=== PATIENT | female | born 1995 | race Caucasian/White ===

== ENCOUNTER → 2019-05-10 13:57 | Outpatient (CLI) | payer MEDICAID ==
[~2019-05-10 13:57] MED LIST: TYLENOL W/CODEI1 TAB PO
[2019-05-10 15:26] LABS: BASOPHILS 0.1 % (0-2); EOSINOPHILS 1.3 % (0-7); HEMATOCRIT 28.5 % (36.0-48.0); IMMATURE GRANULOCYTES 1.3 % (0-5); LYMPHOCYTES 16.5 % (15-50); MCH 26.9 pg (26.0-34.0); MCHC 31.6 g/dL (31.0-37.0); MCV 85.3 fL (80.0-100.0); MEAN PLATELET VOLUME 11.3 fL (7.4-10.4); MONOCYTES 10.1 % (2-11); NEUTROPHILS 70.7 % (40-80); RBC 3.34 10x6/uL (4.00-5.40); RDW 13.5 % (11.5-14.5); WBC 8.4 10x3/uL (4.8-10.8)
[2019-05-10 15:32] LABS: PLATELET COUNT 193 10x3/uL (130-400)
[2019-05-10 15:46] LABS: ALBUMIN 2.6 g/dL (3.4-5.0); ALKALINE PHOSPHATASE 171 U/L (46-116); ALT (SGPT) 11 U/L (10-68); BILIRUBIN - DIRECT 0.06 mg/dL (0.00-0.30); BILIRUBIN - INDIRECT 0.13 mg/dL (0.00-1.00); BILIRUBIN - TOTAL 0.19 mg/dL (0.2-1.3); CALC OSMOLALITY 275 mosm/kg (275-300); CALCIUM 8.4 mg/dL (8.5-10.1); CHLORIDE - SERUM 105 mmol/L (98-107); CREATININE - SERUM 0.6 mg/dL (0.6-1.3); GLUCOSE 76 mg/dL (74-106); POTASSIUM - SERUM 4.1 mmol/L (3.5-5.1); PROTEIN - SERUM 6.5 g/dL (6.4-8.2); SODIUM 139 mmol/L (136-145); UREA NITROGEN 11 mg/dL (7-18); eGFR NON AFRICAN AMERICAN > 90 mL/min (90-120)
[2019-05-18 20:39] VITALS: BMI 28.2
== END | disposition home or self-care (01) ==
LOC: D.LDO 13:57
PROVIDERS: ATTEND Obstetrics & Gynecology
DX: O26.899 Other specified pregnancy related conditions, unspecified trimester (principal); R03.0 Elevated blood-pressure reading, without diagnosis of hypertension; Z3A.00 Weeks of gestation of pregnancy not specified

== ENCOUNTER → 2019-05-18 10:37 | Outpatient (CLI) | payer MEDICAID ==
[2019-05-18 20:39] VITALS: BMI 28.2
== END | disposition home or self-care (01) ==
LOC: D.LDO 10:37
PROVIDERS: ATTEND Obstetrics & Gynecology
DX: O26.893 Other specified pregnancy related conditions, third trimester (principal); Z3A.38 38 weeks gestation of pregnancy

== ENCOUNTER 2019-05-18 20:05 | Inpatient (IN) | payer MEDICAID ==
[~2019-05-18] VITALS: Ht 170.2 cm; Wt 81.8 kg
[2019-05-18 20:39] VITALS: BP 144/87; Ht 170.2 cm; Wt 81.8 kg
[2019-05-18 21:11] LABS: HEMATOCRIT 30.1 % (36.0-48.0); HEMOGLOBIN 9.4 g/dL (12-16); MCH 26.3 pg (26.0-34.0); MCHC 31.2 g/dL (31.0-37.0); MCV 84.3 fL (80.0-100.0); RBC 3.57 10x6/uL (4.00-5.40); RDW 13.8 % (11.5-14.5)
[2019-05-18 21:22] LABS: APPEARANCE HAZY (CLEAR); BILIRUBIN NEGATIVE (NEGATIVE); COLOR YELLOW (YELLOW); GLUCOSE NEGATIVE (NEGATIVE); KETONE NEGATIVE (NEGATIVE); NITRITE NEGATIVE (NEGATIVE); PROTEIN NEGATIVE (NEGATIVE); SPECIFIC GRAVITY 1.015 (1.005-1.020); UROBILINOGEN NORMAL (NORMAL)
[2019-05-18 21:24] LABS: BACTERIA MANY /hpf (NEGATIVE); RED CELLS - URINE 0-5 /hpf (0-5); YEAST >1+ WITH HYPHAE /hpf (NONE SEEN)
[2019-05-19 03:55] LABS: UDS - AMPHET NEGATIVE QUAL (NEGATIVE); UDS - BARB NEGATIVE QUAL (NEGATIVE); UDS - BENZO NEGATIVE QUAL (NEGATIVE); UDS - COCAINE NEGATIVE QUAL (NEGATIVE); UDS - OPIATE NEGATIVE QUAL (NEGATIVE); UDS - PCP NEGATIVE QUAL (NEGATIVE); UDS - THC NEGATIVE QUAL (NEGATIVE)
[2019-05-19 19:25] VITALS: BP 132/85
--- NOTE | 2019-05-19 19:25 | NUR ---
INTO ROOM FOR PT. ASSESSMENT. PT. INSIST THAT IV SALINE LOCK BE REMOVED DUE TO PAIN AT SITE. IV SITE RED AND EDEMATOUS. IV SALINE LOCK DISCONTINUED WITH INTACT CATH TIP NOTED. FUNDUS FIRM U/U AND SLIGHTLY DISPLACED. BLADDER APPEARS DISTENDED. INQUIRED IF PT. HAD URGE TO VOID. REPORTS THAT SHE DOES. BREATH SOUNDS CLEAR AND BOWEL SOUNDS AUDIBLE. PT. UP TO VOID. IN ROOM BEING HELD BY FOB. VISITORS PRESENT.
--- NOTE | 2019-05-19 19:52 | NUR ---
BACK TO BED. FUNDUS U/2 AND MIDLINE. NO UTERINE DISTENSION OBSERVED AT THIS TIME. INFORMED PT. NEW ROOM IS BEING CLEANED AT THIS TIME FOR HER TRANSFER. STATES UNDERSTANDING.
--- NOTE | 2019-05-19 20:45 | NUR ---
TRANSFERRED PT TO [facility]. GAIT STEADY . ORIENTED TO CALL SYSTEM, BED CONTROLS AND ROOM TEMP. CONTROL. PT. STATES UNDERSTANDING TO ALL. PT. REPORTS ABD.CRAMPING. PT. OFFERED MED TO HELP CONTROL AND PT. AGREEABLE. FOB REMAINS IN ROOM WITH PT. SIDE RAILS UP X 2 AND CALL LIGHT WITHIN REACH.
--- NOTE | 2019-05-19 21:03 | NUR ---
TORADOL GIVEN ORDERED FOR C/O ABD. CRAMPING THAT PT. RATES A 1 OF 10 ON PAIN SCALE. PT. REPORTS THAT CURRENT BED IS MUCH MORE COMFORTABLE. FOB IN ROOM.
[2019-05-19 22:04] VITALS: BP 125/62
--- NOTE | 2019-05-19 22:04 | NUR ---
INFORMED PT. OF TYLENOL ORDERED EVERY 6 HOURS. PT. RELATES THAT SHE DID NOT SLEEP MUCH LAST NIGHT AND PREFERS TO SLEEP AND NOT BE AWAKENED FOR MED. INFORMED PT. TO CALL IF SHE NEEDS ANY MEDS WHEN SHE WAKES UP. PT. STATES THAT SHE WILL. BABY IN ROOM AT PRESENT AND FOB HOLDING. FUNDUS FIRM U/2 AND MIDLINE. PT. RELATES THAT SHE IS STILL HAVING SOME ABD. CRAMPING THAT SHE CONTINUES TO RATE A 1 OF 10 ON PAIN SCALE. DENIES ANY NEEDS AT THIS TIME. SIDE RAILS UP X 2 AND CALL LIGHT WITHIN REACH.
--- NOTE | 2019-05-19 23:35 | NUR ---
LYING ON BACK HOLDING . DENIES ANY NEEDS. TV PLAYING.
--- NOTE | 2019-05-20 02:05 | NUR ---
PT RESTING QUIETLY WITH EYES CLOSED, EASILY AROUSED TO VERBAL STIMULI. PT DENIES PAIN OR NEEDS AT THIS TIME. INFANT IN OPEN CRIB AT BEDSIDE. BED REMAINS LOCKED IN LOW POSITION, SIDE RAILS UPX2, CALL CHEN AND TRAY TABLE IN REACH. PT ENCOURAGED TO CALL WITH ANY NEEDS.
--- NOTE | 2019-05-20 03:07 | NUR ---
PT UP TO BATHROOM, CLEAN PANTIES AND PADS PROVIDED. DENIES OTHER NEEDS. WILL CONTINUE TO MONITOR
--- NOTE | 2019-05-20 04:34 | NUR ---
LYING ON BACK WITH HOB AT 30 DEGREES BURPING . DENIES ANY NEEDS AT THIS TIME.
[2019-05-20 05:59] LABS: BASOPHILS 0.2 % (0-2); EOSINOPHILS 0.9 % (0-7); IMMATURE GRANULOCYTES 0.8 % (0-5); LYMPHOCYTES 18.6 % (15-50); MCH 26.1 pg (26.0-34.0); MCHC 30.8 g/dL (31.0-37.0); MEAN PLATELET VOLUME 11.6 fL (7.4-10.4); MONOCYTES 10.5 % (2-11); PLATELET COUNT 191 10x3/uL (130-400); RBC 3.06 10x6/uL (4.00-5.40)
--- NOTE | 2019-05-20 06:02 | NUR ---
LYING ON BACK WITH EYES CLOSED. RESPIRATIONS UNLABORED.
[2019-05-20 06:30] LABS: WBC 12.6 10x3/uL (4.8-10.8)
[2019-05-20 07:15] LABS: RAPID PLASMA REAGIN Non Reactive (Non Reactive)
--- NOTE | 2019-05-20 07:30 | NUR ---
AM ASSESSMENT COMPLETED CHARTED ON FLOWSHEET. PT DENIES PAIN OR DISCOMFORT AT THIS TIME. IN CRIB AT BESIDE, SIDE RAILS UP X 2 AND CALL LIGHT IN REACH.
--- NOTE | 2019-05-20 10:30 | NUR ---
CONTINUE TO DENY PAIN. TOWELS PLACED IN BATHROOM ALONG WITH SOAP/SHAMPOO AND TOOTHBRUSH PER PT REQUEST. DENIES ANY OTHER NEEDS AT THIS TIME.
--- NOTE | 2019-05-20 13:00 | NUR ---
LARGE CUP OF ICE AND LEMON LOWER [place] PER REQUEST. DENIES PAIN OR DISCOMFORT. AT BEDSIDE. CALL LIGHT IN REACH.
[2019-05-20] MEDS ORDERED: TYLENOL W/CODEI1 TAB PO (13:52)
--- NOTE | 2019-05-20 14:45 | NUR ---
VERBAL AND WRITTEN DISCHARGE WELL ROOMING IN POLICY GONE OVER WITH PT. SHE STATES HER UNDERSTANDING AND DENIES QUESTIONS. WRITTEN SCRIPT FOR TYLENOL #3 WITH INFO ALSO GIVEN TO PT SPOUSE TO TAKE TO PHARMACY. SHE DENIES PAIN OR DISCOMFORT AT THIS TIME. WILL WAIT TO COMPLETE D/C UNTIL SPOUSE RETURNS WITH PAIN MEDS.
== END 2019-05-20 15:30 | disposition home or self-care (01) | DRG 807 ==
LOC: D.LD 20:05
PROVIDERS: ADMIT Obstetrics & Gynecology; ATTEND Obstetrics & Gynecology
PROC: 10E0XZZ Delivery of Products of Conception, External Approach (ICD-10-PCS; principal; 2019-05-19)
DX: O99.824 Streptococcus B carrier state complicating childbirth (principal); Z37.0 Single live birth; Z3A.39 39 weeks gestation of pregnancy; O69.81X0 Labor and delivery complicated by cord around neck, without compression, not applicable or unspecified